=== PATIENT | female | born 1935 | race Caucasian/White ===

== ENCOUNTER 2018-05-11 14:04 | Emergency (ER) | payer MEDICARE, OTHER ==
[2018-05-11 14:17] VITALS: BMI 27.6
--- NOTE | 2018-05-11 14:25 | PDOC ---
History of Present Illness - General Chief Complaint: Weakness Stated Complaint: WEANKES - History of Present Illness Initial Comments: The patient is an 82F w/ a history of hypothyroidism, HTN, and anxiety who presents for evaluation of 3 days of insomnia, NB diarrhea, lightheadedness/ dizziness, and approximately 2d of non-exertional SOB. The patient reports a history of episodes of insomnia in the past. Reports 3d of NB diarrhea w/o N/V. Does not recall eating anything different. No others around her w/ similar symptoms. Denies fevers/chills. Endorses 2d of non-exertional SOB, that was gradual onset. Describes and needing to take more frequent breaths. Denies cough, chest pain. The patient reports living alone. Ambulates independently. Denies a period of immobility. Denies hx of SD, stroke, blood clot, or being on AC. Denies fall within last week; however, fell two weeks ago at night while walking to the bathroom. Reports feeling anxious. No identified inciting trigger per patient. Per daughter, pt's grandson broke up with gf recently and pt reportedly upset by it (occurred approximately 3-4d ago) No recent change to meds 05/11/18 14:42 Past History - Past Medical History Allergies/Adverse Reactions: Allergies Allergy/AdvReac Type Severity Reaction Status Date / Time No Known Allergies Allergy Verified 05/11/18 14:05 Home Medications: Ambulatory Orders Alprazolam [Xanax] 1 mg PO BID 05/11/18 Ascorbic Acid [Vitamin C -] 500 mg PO DAILY 05/11/18 Cephalexin Monohydrate [Keflex -] 500 mg PO BID 7 Days #14 capsule 05/11/18 Chlorthalidone [Hygroton -] 25 mg PO DAILY 05/11/18 Escitalopram Oxalate [Lexapro -] 10 mg PO DAILY 05/11/18 Levothyroxine Sodium [Levo-T] 75 mcg PO DAILY 05/11/18 Losartan Potassium [Cozaar -] 50 mg PO DAILY 05/11/18 Melatonin 5 mg PO HS 05/11/18 Mv-Mn/Iron/Folic Acid/Herb 190 [Vitamin D3 Complete Caplet] 1 each PO DAILY Potassium Chloride [K-Dur -] 10 meq PO DAILY 05/11/18 Quetiapine Fumarate "Xr" [Seroquel Xr -] 400 mg PO HS 05/11/18 COPD: No HTN: Yes Psychiatric Problems: Yes (depression) Thyroid Disease: Yes - Suicide/Smoking/Psychosocial Hx Smoking History: Never smoked Review of Systems - Review of Systems Able to Perform ROS?: Yes Comments:: GENERAL/CONSTITUTIONAL: No fever or chills. No weakness._ HEAD, EYES, EARS, NOSE AND THROAT: No change in vision. No ear pain or discharge. No sore throat._ CARDIOVASCULAR: No chest pain or shortness of breath_ RESPIRATORY: No cough, wheezing, or hemoptysis._ GASTROINTESTINAL: No nausea, vomiting, diarrhea or constipation._ GENITOURINARY: No dysuria, frequency, or change in urination._ MUSCULOSKELETAL: No joint or muscle swelling or pain. No neck or back pain._ SKIN: No rash_ NEUROLOGIC: No headache, vertigo, loss of consciousness, or change in strength/ sensation._ ENDOCRINE: No increased thirst. No abnormal weight change_ HEMATOLOGIC/LYMPHATIC: No anemia, easy bleeding, or history of blood clots._ ALLERGIC/IMMUNOLOGIC: No hives or skin allergy._ 05/11/18 14:59 *Physical Exam - Vital Signs Last Vital Signs Temp Pulse Resp BP Pulse Ox 98.5 F 85 20 137/45 L 98 05/11/18 14:12 05/11/18 14:12 05/11/18 14:12 05/11/18 14:12 05/11/18 14:12 - Physical Exam Comments: GENERAL: Awake, alert, in no acute distress HEAD: No signs of trauma, normocephalic, atraumatic EYES: PERRLA, EOMI, sclera anicteric, conjunctiva clear ENT: Hearing grossly normal, nares patent, oropharynx clear without exudates. Moist mucosa LUNGS: No distress, clear to auscultation bilaterally HEART: Regular rate and rhythm, normal S1 and S2, no murmurs appreciated, peripheral pulses normal and equal bilaterally ABDOMEN: Soft, nontender, normoactive bowel sounds. No guarding, no rebound EXTREMITIES : Normal inspection, Normal range of motion, no edema. No clubbing or cyanosis NEUROLOGICAL: Cranial nerves II through XII grossly intact. Normal speech, no focal sensorimotor deficits SKIN: Warm, Dry, normal turgor, no rashes or lesions noted 05/11/18 14:59 ED Treatment Course - LABORATORY CBC & Chemistry Diagram: 05/11/18 15:05 05/11/18 15:05 Medical Decision Making - Medical Decision Making The patient is an 82F w/ a history of hypothyroidism, HTN, anxiety who presents for evaluation of 3d of insomnia, lightheadedness, non-exertional dyspnea, and NB diarrhea ED Course CMP, CBC, cardiac profile, T/S, UA, UCx ECG CXR, CT Head w/o 05/11/18 15:01 Trop I neg No leukocytosis BNP wnl No IRIS Lytes wnl CXR w/o evidence of PNA/PNX Pending CT head 05/11/18 17:05 D-dimer 795, will obtain CTA chest to r/o PE 05/11/18 17:17 UA w/ evidence of UTI -Rocephin 1g IV once -Will Rx Keflex 5d CTA pending 05/11/18 17:55 CT Head w/o evidence of bleed, edema, mass effect, or herniation 05/11/18 18:14 CTA pending 05/11/18 19:25 CTA read pending 05/11/18 20:23 CTA w/o evidence of PE or AD; Small pleural effusion; No pnx; no sig pericardial effusion Plan for D/C w/ PCP and regular psych f/u Discharge instructions and return precautions given Rx sent to patient's pharmacy Dispo: Home 05/11/18 21:27 *DC/Admit/Observation/Transfer Diagnosis at time of Disposition: Insomnia Qualifiers: Insomnia type: unspecified Qualified Code(s): G47.00 - Insomnia, unspecified Headache Qualifiers: Headache type: unspecified Headache chronicity pattern: acute headache Intractability: not intractable Qualified Code(s): R51 - Headache - Discharge Dispostion Disposition: HOME Condition at time of disposition: Stable Decision to Admit order: No - Prescriptions Prescriptions: Cephalexin Monohydrate [Keflex -] 500 mg PO BID 7 Days #14 capsule - Referrals Referrals: Lori Calderon MD [Primary Care Provider] - - Patient Instructions Printed Discharge Instructions: DI for Headache, DI for Insomnia Additional Instructions: You were seen in the Emergency Department today for evaluation for insomnia and dizziness. You were evaluated and found to not have evidence of infection, head bleed, blood clot, or electrolyte abnormality. Please review then handouts provided at discharge. Please follow up with your primary care provider within the next 1-3 days. Return to the Emergency Department if you develop fevers/chills, shortness of breath, chest pain, nausea/vomiting, worsening symptoms, or any new/concerning symptoms. - Post Discharge Activity
[2018-05-11] MEDS ORDERED: SODIUM CHLORIDE 0.9% 500 ML INFUS.BAG IV ONE (15:25)
[2018-05-11 15:47] LABS: ALBUMIN 3.8 g/dl (3.4-5.0); ALK PHOS 85 U/L (45-117); ANION GAP 7 MMOL/L (8-16); BILIRUBIN,TOTAL 0.4 mg/dL (0.2-1); BLOOD UREA NITROGEN 20 mg/dL (7-18); CALCIUM 8.5 mg/dL (8.5-10.1); CHLORIDE 97 mmol/L (98-107); CO2 27 mmol/L (21-32); GLUCOSE,RANDOM 86 mg/dL (74-106); SGOT/AST 30 U/L (15-37); SGPT/ALT 24 U/L (13-61); SODIUM 131 mmol/L (136-145); TOT PROT 7.2 g/dl (6.4-8.2)
[2018-05-11 15:55] LABS: URINE APPEARANCE CLEAR; URINE BILIRUBIN NEGATIVE (<2.0 mg/dL); URINE COLOR STRAW; URINE GLUCOSE (UA) NEGATIVE (NEGATIVE); URINE KETONE NEGATIVE (NEGATIVE); URINE LEUK ESTERASE 1+ (NEGATIVE); URINE NITRITE NEGATIVE (NEGATIVE); URINE PROTEIN NEGATIVE (NEGATIVE); URINE UROBILINOGEN NEGATIVE mg/dL (0.2-1.0)
[2018-05-11 16:08] LABS: HEMATOCRIT 32.5 % (32.4-45.2); INR 0.98 (0.83-1.09); MCH 31.7 pg (25.7-33.7); MCHC 33.8 g/dl (32.0-36.0); MEAN CELL VOLUME 93.7 fl (80-96); MEAN PLT VOLUME 7.9 fl (7.5-11.1); PLATELET COUNT 143 K/MM3 (134-434); PROTHROMBIN TIME (PATIENT) 11.6 SEC (9.7-13.0); RBC 3.47 M/mm3 (3.60-5.2); RDW 12.3 % (11.6-15.6); WHITE BLOOD COUNT 6.8 K/mm3 (4.0-10.0)
[2018-05-11 16:11] LABS: ACTIVATED PTT 41.5 SECONDS (25.2-36.5)
--- NOTE | 2018-05-11 16:22 | PDOC ---
Attending Attestation - Resident Resident Name: Giovany Villalobos - ED Attending Attestation I have performed the following: I have examined & evaluated the patient, The case was reviewed & discussed with the resident, I agree w/resident's findings & plan, Exceptions are as noted - HPI HPI: 05/11/18 16:22 The patient is a 82 year old female, with a significant PMH of hypothyroidism, hypertension, anxiety and episodic insomnia, who presents to the emergency department with 3 days of insomnia and headache. The patient is a poor hisorian and gives varying histories to different providers, previously reported intermittent lightheadedness, diarrhea and SOB. At this time, she complains of a headache over the crown of her head for 3 days of gradual onset and insomnia. She denies all other symptoms. She has not tried any treatments The patient denies any recent chest pain, SOB, dizziness, palpitations or syncope. Denies fever, chills, abdominal pain, nausea, vomit and constipation. Denies dysuria, frequency, urgency and hematuria. Allergies: NKA PCP: Dr Calderon - Physicial Exam PE: 05/11/18 16:25 GENERAL: Awake, alert, and fully oriented, in no acute distress HEAD: No signs of trauma EYES: PERRLA, EOMI, sclera anicteric, conjunctiva clear ENT: Hard of hearing, nares patent, oropharynx clear without exudates. Moist mucosa NECK: Normal ROM, supple, no lymphadenopathy, JVD, or masses LUNGS: Breath sounds equal, clear to auscultation bilaterally. No wheezes, and no crackles HEART: Regular rate and rhythm, normal S1 and S2, no murmurs, rubs or gallops ABDOMEN: Soft, nontender, normoactive bowel sounds. No guarding, no rebound. No masses EXTREMITIES: Normal range of motion, no edema. No clubbing or cyanosis. No cords, erythema, or tenderness NEUROLOGICAL: Normal speech, cranial nerves intact, 5/5 strength in all 4 extremities, normal sensation to light touch in all 4 extremities, normal cerebellar exam, normal gait, normal reflexes and tone SKIN: Warm, Dry, normal turgor, no rashes or lesions noted. - Medical Decision Making 05/11/18 16:28 82yo F hx hypothyroidism, hypertension, anxiety and episodic insomnia presents to the ED with various complaints including insomnia and headache, but also c/o intermittent SOB, diarrhea, and lightheadedness to other providers. Vitals wnl. Pt well appearing, and neurologically intact. EKG is non ischemic. Headache is gradual onset with no red flags. Given limited history, will work pt off for ACS vs PE vs metabolic d/o vs infection vs neurologic abnormality. Plan: -labs including trop x2 -UA -CXR -CTH -treat headache -reassess 05/11/18 17:00 Labs including trop wnl UA with 8 WBCs and moderate bacteria, will treat UTI dimer pending CTH pending Signed out to evening attending for f/u on diagnostics and dispo Heart Score/ECG Review #1 05/11/18 16:31 Twelve-lead EKG was performed and reviewed by me. Normal sinus rhythm, rate 68. Normal axis and intervals. No ST elevations.
[2018-05-11 16:28] LABS: EPI CELLS RARE /HPF (FEW); URINE BACTERIA MODERATE /hpf (NONE SEEN)
[2018-05-11] MEDS ORDERED: ACETAMINOPHEN 1000 MG/100 ML VIAL (NON FORMULARY) IVPB ONE (16:56)
[2018-05-11] MEDS ORDERED: CEFTRIAXONE 1,000 MG in DEXTROSE 5%-WATER - 50 ML IVPB ONE (17:54)
[2018-05-11] MEDS ORDERED: CEFTRIAXONE 1 GM/50 ML BAG ONE (18:07)
[2018-05-11 19:17] VITALS: BP 160/74; PULSE 64; TEMP 97.8
--- NOTE | 2018-05-12 10:58 | EKG ---
Test Reason : Blood Pressure : / mmHG Vent. Rate : 068 BPM Atrial Rate : 068 BPM P-R Int : 132 ms QRS Dur : 092 ms QT Int : 376 ms P-R-T Axes : 004 026 040 degrees QTc Int : 399 ms NORMAL SINUS RHYTHM NORMAL ECG NO PREVIOUS ECGS AVAILABLE Confirmed by HUMAIRA MARIN MD ([id number]) on 05/12/2018 10:57:26 AM Referred By: Confirmed By:HUMAIRA MARIN MD
== END 2018-05-11 21:10 | disposition home or self-care (01) ==
LOC: JER 14:04
PROC: 3E03329 Introduction of Other Anti-infective into Peripheral Vein, Percutaneous Approach (ICD-10-PCS; principal; 2018-05-11)
PROC: 3E033NZ Introduction of Analgesics, Hypnotics, Sedatives into Peripheral Vein, Percutaneous Approach (ICD-10-PCS; 2018-05-11)
DX: N39.0 Urinary tract infection, site not specified (principal); G47.00 Insomnia, unspecified; R51 Headache; I10 Essential (primary) hypertension; E03.9 Hypothyroidism, unspecified; F41.9 Anxiety disorder, unspecified
CPT/HCPCS: 36415; 70450-TC; 71045-TC-FY; 71275-TC; 80053; 81003; 81015; 82550; 83880; 84484; 85027; 85379; 85610; 85730; 86850; 86900; 86901; 93005; 93010; 96365; 96375; 99284-25; J0131

== ENCOUNTER 2018-07-15 10:57 | Observation (INO) | payer MEDICARE, OTHER ==
[2018-07-15] MEDS ORDERED: ACETAMINOPHEN 1000 MG/100 ML VIAL (NON FORMULARY) IVPB ONE (12:37)
[2018-07-15] MEDS ORDERED: SODIUM CHLORIDE 1,000 ML IV STA (12:37)
[2018-07-15] MEDS ORDERED: ONDANSETRON 4 MG/2 ML VIAL IVPUSH ONE (12:37)
[2018-07-15] MEDS ORDERED: ONDANSETRON 4 MG/2 ML VIAL ONE (12:51)
[2018-07-15] MEDS ORDERED: ACETAMINOPHEN INJECTION 100 ML IVPB ONE (12:51)
--- NOTE | 2018-07-15 12:59 | PDOC ---
History of Present Illness - General History Source: Patient, Family Exam Limitations: Language Barrier - History of Present Illness Initial Comments: 07/15/18 13:02 Bail Attacher# [id number] (French) The patient is a 82 year old female, with a significant past medical history of anxiety, hypertension, and hypothyroid, who presents to the emergency department with headache, dizziness, shortness of breath, nausea and vomiting with associated epigastric pain for about a week. She states her headache is diffuse and accompanied with intermittent dizziness. She reports about 2-3 episodes of white, not yellow or bloody emesis daily. She reports localized, intermittent, epigastric pain, 3/10 in severity, associated with her emesis and also reports a loss of appetite since the onset of her symptoms. She also reports intermittent SOB. She is currently taking Abx for a UTI. She denies sick contacts. The patient denies chest pain. The patient denies fever, chills, nausea, vomit, diarrhea and constipation. The patient denies dysuria, frequency, urgency and hematuria. Allergies: NKDA <Valentine Drew - Last Filed: 07/15/18 13:02> <Karie Limon - Last Filed: 07/15/18 15:46> - General Chief Complaint: Cold Symptoms Stated Complaint: COLD SYMPTOMS Time Seen by Provider: 07/15/18 11:32 Past History <Valentine Drew - Last Filed: 07/15/18 13:02> - Past Medical History COPD: No HTN: Yes Psychiatric Problems: Yes (depression) Thyroid Disease: Yes - Immunization History Immunization Up to Date: Yes - Suicide/Smoking/Psychosocial Hx Smoking History: Never smoked Information on smoking cessation initiated: No Hx Alcohol Use: No Drug/Substance Use Hx: No <Karie Limon - Last Filed: 07/15/18 15:46> - Past Medical History Allergies/Adverse Reactions: Allergies Allergy/AdvReac Type Severity Reaction Status Date / Time No Known Allergies Allergy Verified 07/15/18 11:02 Home Medications: Ambulatory Orders Levothyroxine Sodium [Levo-T] 50 mcg PO DAILY 05/11/18 Cholecalciferol (Vitamin D3) [Vitamin D3] 2,000 unit PO DAILY 07/15/18 Escitalopram Oxalate [Lexapro -] 10 mg PO DAILY 07/15/18 Melatonin [Melatin] 3 mg PO HS PRN 07/15/18 Quetiapine Fumarate "Xr" [Seroquel Xr -] 400 mg PO HS 07/15/18 Review of Systems - Review of Systems Able to Perform ROS?: Yes Comments:: 07/15/18 13:03 GENERAL/CONSTITUTIONAL: (+) appetite loss. No fever or chills. No weakness. HEAD, EYES, EARS, NOSE AND THROAT: No change in vision. No ear pain or discharge. No sore throat. CARDIOVASCULAR: No chest pain RESPIRATORY: (+) shortness of breath. No cough, wheezing, or hemoptysis. GASTROINTESTINAL: (+) nausea, vomiting, epigastric pain. No diarrhea or constipation. GENITOURINARY: No dysuria, frequency, or change in urination. MUSCULOSKELETAL: No joint or muscle swelling or pain. No neck or back pain. SKIN: No rash NEUROLOGIC: (+) headache, vertigo, No loss of consciousness, or change in strength/sensation. ENDOCRINE: No increased thirst. No abnormal weight change. HEMATOLOGIC/LYMPHATIC: No anemia, easy bleeding, or history of blood clots. ALLERGIC/IMMUNOLOGIC: No hives or skin allergy. <Valentine Drew - Last Filed: 07/15/18 13:02> *Physical Exam - Vital Signs Last Vital Signs Temp Pulse Resp BP Pulse Ox 98.2 F 74 17 151/72 96 07/15/18 11:03 07/15/18 11:03 07/15/18 11:03 07/15/18 11:03 07/15/18 11:03 <Valentine Drew - Last Filed: 07/15/18 13:02> - Vital Signs Last Vital Signs Temp Pulse Resp BP Pulse Ox 98.2 F 74 17 151/72 96 07/15/18 11:03 07/15/18 11:03 07/15/18 11:03 07/15/18 11:03 07/15/18 11:03 - Physical Exam Comments: GENERAL: Awake, alert, and fully oriented, in no acute distress. Appears ill, but nontoxic. Uncomfortable. HEAD: No signs of trauma EYES: PERRLA, EOMI, sclera anicteric, conjunctiva clear ENT: Auricles normal inspection, hearing grossly normal, nares patent, oropharynx clear without exudates. Dry mucosa NECK: Normal ROM, supple, no lymphadenopathy, JVD, or masses LUNGS: Breath sounds equal, clear to auscultation bilaterally. No wheezes, and no crackles HEART: Regular rate and rhythm, normal S1 and S2, no murmurs, rubs or gallops ABDOMEN: Soft, diffuse tenderness, hyperactive bowel sounds. No guarding, no rebound. No masses EXTREMITIES: Normal range of motion, no edema. No clubbing or cyanosis. No cords, erythema, or tenderness NEUROLOGICAL: Cranial nerves II through XII grossly intact. Normal speech, normal gait. Motor and sensation intact SKIN: Warm, Dry, normal turgor, no rashes or lesions noted. <Karie Limon - Last Filed: 07/15/18 15:46> Moderate Sedation - Procedure Monitoring Vital Signs: Procedure Monitoring Vital Signs Temperature 98.2 F 07/15/18 11:03 Pulse Rate 74 07/15/18 11:03 Respiratory Rate 17 07/15/18 11:03 Blood Pressure 151/72 07/15/18 11:03 O2 Sat by Pulse Oximetry (%) 96 07/15/18 11:03 <Valentine Drew - Last Filed: 07/15/18 13:02> - Procedure Monitoring Vital Signs: Procedure Monitoring Vital Signs Temperature 98.2 F 07/15/18 11:03 Pulse Rate 74 07/15/18 11:03 Respiratory Rate 17 07/15/18 11:03 Blood Pressure 151/72 07/15/18 11:03 O2 Sat by Pulse Oximetry (%) 96 07/15/18 11:03 <Karie Limon - Last Filed: 07/15/18 15:46> Heart Score/ECG Review - ECG Impressions Comment:: EKG read 12:14- NSR 72 bpm, no acute ST/T changes. <Karie Limon - Last Filed: 07/15/18 15:46> ED Treatment Course - LABORATORY CBC & Chemistry Diagram: 07/15/18 12:48 07/15/18 12:45 - Medications Given in the ED: ED Medications Discontinued Medications Generic Name Dose Route Start Last Admin Trade Name Freq PRN Reason Stop Dose Admin Acetaminophen 1,000 mg 07/15/18 12:37 07/15/18 12:56 Ofirmev Injection - IVPB 07/15/18 12:38 1,000 mg ONCE ONE Administration Ondansetron HCl 4 mg 07/15/18 12:37 07/15/18 12:56 Zofran Injection IVPUSH 07/15/18 12:38 4 mg ONCE ONE Administration <Valentine Drew - Last Filed: 07/15/18 13:02> - LABORATORY CBC & Chemistry Diagram: 07/15/18 12:48 07/15/18 12:45 - Medications Given in the ED: ED Medications Discontinued Medications Generic Name Dose Route Start Last Admin Trade Name Emilie PRN Reason Stop Dose Admin Acetaminophen 1,000 mg 07/15/18 12:37 07/15/18 12:56 Ofirmev Injection - IVPB 07/15/18 12:38 1,000 mg ONCE ONE Administration Ondansetron HCl 4 mg 07/15/18 12:37 07/15/18 12:56 Zofran Injection IVPUSH 07/15/18 12:38 4 mg ONCE ONE Administration <Karie Limon - Last Filed: 07/15/18 15:46> Medical Decision Making - Medical Decision Making 07/15/18 12:59 Based on age and duration of symptoms, will obtain labs, as well as CT a/p. 07/15/18 15:27 CT reviewed, no significant findings to explain her symptoms. Will admit for vomiting, with hyponatremia and hypochloremia. She has history of prior hyponatremia ~131, now at 127. In light of the hypochloremia, likely due to GI losses. D/w Dr. Indigo Mendoza, accepted to hospitalist service. <Karie Limon - Last Filed: 07/15/18 15:46> *DC/Admit/Observation/Transfer - Attestations Scribe Attestion: 07/15/18 13:03 Documentation prepared by Valentine Drew, acting as medical lab specialist for Karie Limon MD <Valentine Drew - Last Filed: 07/15/18 13:02> - Discharge Dispostion Decision to Admit order: Yes <Karie Limon - Last Filed: 07/15/18 15:46> Diagnosis at time of Disposition: Hyponatremia Vomiting Qualifiers: Vomiting type: unspecified Vomiting Intractability: non-intractable Nausea presence: with nausea Qualified Code(s): R11.2 - Nausea with vomiting, unspecified - Discharge Dispostion Condition at time of disposition: Stable - Referrals Referrals: Lori Calderon MD [Primary Care Provider] - - Patient Instructions - Post Discharge Activity
[2018-07-15 13:09] LABS: BASO % 0.4 % (0-2.0); EOS % 0.3 % (0-4.5); HEMATOCRIT 31.7 % (32.4-45.2); HEMOGLOBIN 11.6 GM/dL (10.7-15.3); MCH 33.5 pg (25.7-33.7); MCHC 36.6 g/dl (32.0-36.0); MEAN CELL VOLUME 91.4 fl (80-96); MONO % 5.4 % (3.8-10.2); NEUT % 84.9 % (42.8-82.8); PLATELET COUNT 239 K/MM3 (134-434); RBC 3.47 M/mm3 (3.60-5.2); WHITE BLOOD COUNT 7.2 K/mm3 (4.0-10.0)
[2018-07-15 13:36] LABS: ALBUMIN 4.3 g/dl (3.4-5.0); ALK PHOS 100 U/L (45-117); ANION GAP 11 MMOL/L (8-16); BILIRUBIN,TOTAL 0.4 mg/dL (0.2-1); BLOOD UREA NITROGEN 18 mg/dL (7-18); CALCIUM 9.1 mg/dL (8.5-10.1); CHLORIDE 92 mmol/L (98-107); CO2 24 mmol/L (21-32); CREATININE 0.8 mg/dL (0.55-1.3); GLUCOSE,RANDOM 126 mg/dL (74-106); LIPASE 141 U/L (73-393); POTASSIUM 3.5 mmol/L (3.5-5.1); SGOT/AST 34 U/L (15-37); SGPT/ALT 28 U/L (13-61); SODIUM 127 mmol/L (136-145)
[2018-07-15 14:51] LABS: URINE APPEARANCE CLEAR; URINE BILIRUBIN NEGATIVE (<2.0 mg/dL); URINE COLOR LTYELLOW; URINE GLUCOSE (UA) NEGATIVE (NEGATIVE); URINE KETONE NEGATIVE (NEGATIVE); URINE LEUK ESTERASE TRACE (NEGATIVE); URINE NITRITE NEGATIVE (NEGATIVE); URINE PROTEIN NEGATIVE (NEGATIVE); URINE UROBILINOGEN NEGATIVE mg/dL (0.2-1.0)
[2018-07-15 14:57] LABS: EPI CELLS RARE /HPF (FEW)
--- NOTE | 2018-07-15 15:50 | EKG ---
Test Reason : Blood Pressure : / mmHG Vent. Rate : 072 BPM Atrial Rate : 072 BPM P-R Int : 158 ms QRS Dur : 104 ms QT Int : 416 ms P-R-T Axes : 060 034 025 degrees QTc Int : 455 ms POOR DATA QUALITY, INTERPRETATION MAY BE ADVERSELY AFFECTED NORMAL SINUS RHYTHM NORMAL ECG WHEN COMPARED WITH ECG OF 11-MAY-2018 15:07, QT HAS LENGTHENED Confirmed by Shahid Sorto ([id number]) on 07/15/2018 3:50:04 PM Referred By: Confirmed By:Shahid Sorto
--- NOTE | 2018-07-15 16:07 | HP ---
CHIEF COMPLAINT: abdominal pain HISTORY OF PRESENT ILLNESS: Patient is a 82 yo, Yi speaking F, with a PMHx of hypothyroidism, anxiety, HTN, who presented with 3/10, burning, epigastric, abdominal pain for 2 days. She does not remember what she ate during that time. She said she started developing diffuse headaches yesterday after 2 episodes of NBNB vomiting. Patient did not vomit today. She said the headaches come and go. She also states she has been dizzy over the last 2 days. Her last BM was 2 days ago. Patient has no recent travel. She was being treated with Ciprofloxacin for a UTI by her PCP. Today was her last dose. Denies sick contacts, diarrhea, weight loss, LOC, SOB, chills, fevers, bloody stools, urinary symptoms. ER course was notable for: (1) 127 sodium, 92 Chloride (2) 1L NS bolus (3) Abd CTAP unremarkable Recent Travel: denies PAST MEDICAL HISTORY: per HPI PAST SURGICAL HISTORY: denies Social History: Smoking: denies Alcohol: denies Drugs: denies Family History: Allergies No Known Allergies Allergy (Verified 07/15/18 11:02) HOME MEDICATIONS: Home Medications Medication Instructions Recorded Levothyroxine Sodium [Levo-T] 50 mcg PO DAILY 05/11/18 Cholecalciferol (Vitamin D3) 2,000 unit PO DAILY 07/15/18 [Vitamin D3] Escitalopram Oxalate [Lexapro -] 10 mg PO DAILY 07/15/18 Melatonin [Melatin] 3 mg PO HS PRN 07/15/18 Quetiapine Fumarate "Xr" [Seroquel 400 mg PO HS 07/15/18 Xr -] REVIEW OF SYSTEMS CONSTITUTIONAL: weakness, loss of appetite Absent: fever, chills, diaphoresis, malaise, weight change HEENT: Absent: rhinorrhea, nasal congestion, throat pain, throat swelling, difficulty swallowing, mouth swelling, ear pain, eye pain, visual changes CARDIOVASCULAR: Absent: chest pain, syncope, palpitations, irregular heart rate, lightheadedness , peripheral edema RESPIRATORY: Absent: cough, shortness of breath, dyspnea with exertion, orthopnea, wheezing, stridor, hemoptysis GASTROINTESTINAL: abd pain, nausea, vomiting Absent: abdominal distension, diarrhea, constipation, melena, hematochezia GENITOURINARY: Absent: dysuria, frequency, urgency, hesitancy, hematuria, flank pain, genital pain MUSCULOSKELETAL: Absent: myalgia, arthralgia, joint swelling, back pain, neck pain SKIN: Absent: rash, itching, pallor HEMATOLOGIC/IMMUNOLOGIC: Absent: easy bleeding, easy bruising, lymphadenopathy, frequent infections ENDOCRINE: Absent: unexplained weight gain, unexplained weight loss, heat intolerance, cold intolerance NEUROLOGIC: Absent: headache, focal weakness or paresthesias, dizziness, unsteady gait, seizure, mental status changes, bladder or bowel incontinence PSYCHIATRIC: Absent: anxiety, depression, suicidal or homicidal ideation, hallucinations. PHYSICAL EXAMINATION Vital Signs - 24 hr 07/15/18 11:03 Temperature 98.2 F Pulse Rate 74 Respiratory 17 Rate Blood Pressure 151/72 O2 Sat by Pulse 96 Oximetry (%) GENERAL: Awake, alert, and fully oriented, in no acute distress. HEAD: Normal with no signs of trauma. EYES: Pupils equal, round and reactive to light, extraocular movements intact, sclera anicteric, conjunctiva clear. EARS, NOSE, THROAT: oropharynx clear without exudates. dry mucous membranes NECK: supple without lymphadenopathy, JVD, or masses. LUNGS: Breath sounds equal, clear to auscultation bilaterally. No wheezes, and no crackles. HEART: RRR, no murmurs appreciated, S1 S2 ABDOMEN: Soft, mild epigastric TTP not distended, normoactive bowel sounds, no guarding, no rebound, no masses. UPPER EXTREMITIES: 2+ pulses, No peripheral edema. LOWER EXTREMITIES: 2+ pulses, warm, well-perfused. No peripheral edema. NEUROLOGICAL: Cranial nerves II-XII intact. Normal speech. PSYCHIATRIC: Cooperative. Good eye contact. SKIN: normal turgor, normal capillary refill. Laboratory Results - last 24 hr 07/15/18 07/15/18 07/15/18 12:45 12:48 14:10 WBC 7.2 RBC 3.47 L Hgb 11.6 Hct 31.7 L MCV 91.4 MCH 33.5 MCHC 36.6 H RDW 12.0 Plt Count 239 D MPV 7.0 L D Absolute Neuts (auto) 6.1 Neutrophils % 84.9 H Lymphocytes % 9.0 Monocytes % 5.4 Eosinophils % 0.3 Basophils % 0.4 Nucleated RBC % 0 Sodium 127 L Potassium 3.5 Chloride 92 L Carbon Dioxide 24 Anion Gap 11 BUN 18 Creatinine 0.8 Creat Clearance w eGFR > 60 Random Glucose 126 H Calcium 9.1 Total Bilirubin 0.4 AST 34 ALT 28 Alkaline Phosphatase 100 Troponin I < 0.02 Total Protein 8.0 Albumin 4.3 Lipase 141 Urine Color Ltyellow Urine Appearance Clear Urine pH 6.0 Ur Specific [place] 1.011 Urine Protein Negative Urine Glucose (UA) Negative Urine Ketones Negative Urine Blood Negative Urine Nitrite Negative Urine Bilirubin Negative Urine Urobilinogen Negative Ur Leukocyte Esterase Trace Urine WBC (Auto) 3 Urine RBC (Auto) 4 Ur Epithelial Cells Rare Ur Random Sodium Urine Creatinine 07/15/18 14:10 WBC RBC Hgb Hct MCV MCH MCHC RDW Plt Count MPV Absolute Neuts (auto) Neutrophils % Lymphocytes % Monocytes % Eosinophils % Basophils % Nucleated RBC % Sodium Potassium Chloride Carbon Dioxide Anion Gap BUN Creatinine Creat Clearance w eGFR Random Glucose Calcium Total Bilirubin AST ALT Alkaline Phosphatase Troponin I Total Protein Albumin Lipase Urine Color Urine Appearance Urine pH Ur Specific [place] Urine Protein 11 Urine Glucose (UA) Urine Ketones Urine Blood Urine Nitrite Urine Bilirubin Urine Urobilinogen Ur Leukocyte Esterase Urine WBC (Auto) Urine RBC (Auto) Ur Epithelial Cells Ur Random Sodium 61 Urine Creatinine 49.0 ASSESSMENT/PLAN: 82 yo, Yi speaking F, with a PMHx of hypothyroidism, anxiety, HTN, who presented with abdominal pain, nausea, and vomiting for 2 days. #Abdominal Pain likely 2/2 to Viral Gastroenteritis vs Adverse effect of Antibiotic -DC cipro, Last dose of Ciprofloxacin today (started on 07/08). -1 L Bolus NS in ED -Cont. IV fluids NS 75ml/hour -Abd CTAP unremarkable -monitor #Hyponatremia -likely from dehydration -IV fluids -could be chronic (131 on last admission) -serum/urine osms -monitor lytes #Headache/Dizziness -likely from dehydration -FU Head CT -IV fluids -tylenol as needed #Hypothyroidism -Tsh level -cont home med #hx of Anxiety -cont. Home meds #FEN -Iv fluids NS @ 75 -monitor sodium -Regular diet #Dvt -SCDs Dispo: Obs Visit type - Emergency Visit Emergency Visit: Yes ED Registration Date: 07/15/18 Care time: The patient presented to the Emergency Department on the above date and was hospitalized for further evaluation of their emergent condition. - New Patient This patient is new to me today: Yes Date on this admission: 07/18/18 - Critical Care Critical Care patient: No
[2018-07-15] MEDS ORDERED: ACETAMINOPHEN 325 MG TABLET (FP) PO PRN (16:29)
[2018-07-15] MEDS ORDERED: ONDANSETRON 4 MG/2 ML VIAL IVPUSH PRN (16:32)
[2018-07-15] MEDS: SODIUM CHLORIDE 1,000 ML IV SCH ×2 (16:37→19:40)
[2018-07-15 19:36] VITALS: BMI 29.4
--- NOTE | 2018-07-15 19:59 | PN ---
Teaching Attending Note Name of Resident: Henry Mendoza ATTENDING PHYSICIAN STATEMENT I saw and evaluated the patient. I reviewed the resident's note and discussed the case with the resident. I agree with the resident's findings and plan as documented. SUBJECTIVE: Still complains of abdominal pain, nausea, vomiting clear liquid. OBJECTIVE: Afebrile, Hemodynamically Stable. Last Vital Signs Temp Pulse Resp BP Pulse Ox 97.3 F L 70 20 151/77 98 07/15/18 19:06 07/15/18 19:06 07/15/18 19:06 07/15/18 19:06 07/15/18 19:06 HEENT - Atraumatic, Normocephalic Heart - S1, S2, RRR Lungs - clear to auscultation Abdomen - soft, generalized tenderness. No guarding or rebound. Bowel Sounds normal. Extremities - no edema. No calf tenderness Laboratory Results - last 24 hr 07/15/18 07/15/18 07/15/18 12:45 12:48 14:10 WBC 7.2 RBC 3.47 L Hgb 11.6 Hct 31.7 L MCV 91.4 MCH 33.5 MCHC 36.6 H RDW 12.0 Plt Count 239 D MPV 7.0 L D Absolute Neuts (auto) 6.1 Neutrophils % 84.9 H Lymphocytes % 9.0 Monocytes % 5.4 Eosinophils % 0.3 Basophils % 0.4 Nucleated RBC % 0 Sodium 127 L Potassium 3.5 Chloride 92 L Carbon Dioxide 24 Anion Gap 11 BUN 18 Creatinine 0.8 Creat Clearance w eGFR > 60 Random Glucose 126 H Calcium 9.1 Total Bilirubin 0.4 AST 34 ALT 28 Alkaline Phosphatase 100 Troponin I < 0.02 Total Protein 8.0 Albumin 4.3 Lipase 141 Urine Color Ltyellow Urine Appearance Clear Urine pH 6.0 Ur Specific [place] 1.011 Urine Protein Negative Urine Glucose (UA) Negative Urine Ketones Negative Urine Blood Negative Urine Nitrite Negative Urine Bilirubin Negative Urine Urobilinogen Negative Ur Leukocyte Esterase Trace Urine WBC (Auto) 3 Urine RBC (Auto) 4 Ur Epithelial Cells Rare Ur Random Sodium Urine Creatinine 07/15/18 14:10 WBC RBC Hgb Hct MCV MCH MCHC RDW Plt Count MPV Absolute Neuts (auto) Neutrophils % Lymphocytes % Monocytes % Eosinophils % Basophils % Nucleated RBC % Sodium Potassium Chloride Carbon Dioxide Anion Gap BUN Creatinine Creat Clearance w eGFR Random Glucose Calcium Total Bilirubin AST ALT Alkaline Phosphatase Troponin I Total Protein Albumin Lipase Urine Color Urine Appearance Urine pH Ur Specific [place] Urine Protein 11 Urine Glucose (UA) Urine Ketones Urine Blood Urine Nitrite Urine Bilirubin Urine Urobilinogen Ur Leukocyte Esterase Urine WBC (Auto) Urine RBC (Auto) Ur Epithelial Cells Ur Random Sodium 61 Urine Creatinine 49.0 Current Medications Generic Name Dose Route Start Last Admin Trade Name Freq PRN Reason Stop Dose Admin Acetaminophen 650 mg 07/15/18 16:29 Tylenol - PO Q4H PRN HEADACHE Cholecalciferol 2,000 unit 07/16/18 10:00 Vitamin D3 - PO DAILY [facility] Escitalopram Oxalate 10 mg 07/16/18 10:00 Lexapro - PO DAILY JOSE GUADALUPE Sodium Chloride 1,000 mls @ 75 mls/hr 07/15/18 16:15 07/15/18 16:37 Normal Saline - IV 75 mls/hr ASDIR JOSE GUADALUPE Administration Levothyroxine Sodium 50 mcg 07/16/18 07:00 Synthroid - PO AM JOSE GUADALUPE Melatonin 3 mg 07/15/18 16:32 Melatonin PO HS PRN INSOMNIA Ondansetron HCl 4 mg 07/15/18 16:32 Zofran Injection IVPUSH Q6H PRN NAUSEA AND/OR VOMITING Quetiapine Fumarate 400 mg 07/15/18 22:00 Seroquel Xr - PO HS [facility] Home Medications Medication Instructions Recorded Levothyroxine Sodium [Levo-T] 50 mcg PO DAILY 05/11/18 Cholecalciferol (Vitamin D3) 2,000 unit PO DAILY 07/15/18 [Vitamin D3] Escitalopram Oxalate [Lexapro -] 10 mg PO DAILY 07/15/18 Melatonin [Melatin] 3 mg PO HS PRN 07/15/18 Quetiapine Fumarate "Xr" [Seroquel 400 mg PO HS 07/15/18 Xr -] ASSESSMENT/PLAN: 82 year old female with history of Hypothyroidism, Anxiety, HTN, who presented with abdominal pain, nausea, and vomiting for 2 days (non-bloody), with subsequent headache, without fever/chills or other neurological symptoms. 1. Abdominal Pain/Nausea/Vomiting sec to adverse effect of Abx Cipro versus Gastritis vs Viral gastroenteritis. Lipase 141 CT A/P - possible gastric thickening, no acute pathology Day 7 Cipro today - discontinue Received 1L bolus in ED - continue hydration gently. NPO, IV Morphine Sulfate, Zofran prn GI Consult IV PPI 2. Hyponatremia, possibly sec to dehydration, possibly Chronic (Na 131 on last admission) Will monitor Na in response to IV hydration with NS. Serum/Urine Osmo requested. 3. Headache and Lightheadedness likely secondary to dehydration CT Head - no acute findings. Continue IV hydration and monitor response. Tylenol prn. 4. Hypothyroidism TSH requested. Continue Levothyroxine 5. History of Anxiety - continue Lexapro, Seroquel DVT Px - Heparin SQ Dispo - PT eval. GI Px - PPI
[2018-07-15] MEDS ORDERED: METOCLOPRAMIDE HCL INJECTION 10 MG/2 ML VIAL IVPUSH ONE (20:22)
[2018-07-15 20:26] LABS: OSMOLALITY,SERUM 265 mosm/kg (278-305)
[2018-07-15] MEDS: MORPHINE SULFATE 2 MG/ML VIAL IVPUSH PRN (20:38)
[2018-07-15] MEDS: MELATONIN 1 MG TABLET PO PRN (22:17)
[2018-07-16] MEDS: MORPHINE SULFATE 2 MG/ML VIAL IVPUSH PRN ×3 (05:50→21:35)
[2018-07-16] MEDS: LEVOTHYROXINE NA 50 MCG TABLET (FP) PO SCH (06:42)
[2018-07-16 08:28] LABS: BASO % 0.3 % (0-2.0); EOS % 0.7 % (0-4.5); HEMATOCRIT 30.1 % (32.4-45.2); HEMOGLOBIN 11.2 GM/dL (10.7-15.3); LYMPH % 14.8 % (8-40); MCH 33.8 pg (25.7-33.7); MCHC 37.3 g/dl (32.0-36.0); MEAN CELL VOLUME 90.8 fl (80-96); MEAN PLT VOLUME 6.9 fl (7.5-11.1); MONO % 11.3 % (3.8-10.2); NEUT % 72.9 % (42.8-82.8); PLATELET COUNT 219 K/MM3 (134-434); RBC 3.31 M/mm3 (3.60-5.2); RDW 12.2 % (11.6-15.6); WHITE BLOOD COUNT 6.8 K/mm3 (4.0-10.0)
[2018-07-16 09:23] LABS: ALBUMIN 3.7 g/dl (3.4-5.0); ALK PHOS 80 U/L (45-117); ANION GAP 7 MMOL/L (8-16); BILIRUBIN,TOTAL 0.8 mg/dL (0.2-1); BLOOD UREA NITROGEN 8 mg/dL (7-18); CALCIUM 8.6 mg/dL (8.5-10.1); CHLORIDE 98 mmol/L (98-107); CO2 27 mmol/L (21-32); CREATININE 0.7 mg/dL (0.55-1.3); GLUCOSE,RANDOM 115 mg/dL (74-106); MAGNESIUM 1.9 mg/dL (1.8-2.4); PHOSPHOROUS 2.9 mg/dL (2.5-4.9); POTASSIUM 3.2 mmol/L (3.5-5.1); SGOT/AST 30 U/L (15-37); SGPT/ALT 24 U/L (13-61); SODIUM 131 mmol/L (136-145); TOT PROT 6.9 g/dl (6.4-8.2)
[2018-07-16] MEDS ORDERED: PANTOPRAZOLE SODIUM 40 MG VIAL IVPUSH SCH (10:00)
[2018-07-16] MEDS: CHOLECALCIFEROL (VITAMIN D3) 1,000 UNIT TABLET (FP) PO SCH (11:00)
[2018-07-16] MEDS: ESCITALOPRAM OXALATE 10 MG TABLET (FP) PO SCH (11:00)
--- NOTE | 2018-07-16 11:54 | CON.GI ---
Consult Consult Specialty:: Gastroenterology Referred by:: Dr. Chen Reason for Consultation:: Abdominal pain, abnormal CT imaging - History of Present Illness Chief Complaint: Abdominal pain History of Present Illness: 82yo female h/o CVA, hypothyroidism, anxiety, HTN, presents with abdominal pain , nausea, and vomiting x 3-[address] imaging revealing gastric thickening. Pt is maltese speaking, understands some Kazakh, though maltese phone edge sawyer also used. Pt reports feeling unwell for the past 3-4 days, reports epigastric pain, nausea and vomiting with poor appetite. Describes sharp somewhat burning sensation in epigastrium with fullness, denies dysphagia. States she has not had a bm in 3-4 days, previously regular, daily bm, denies rectal bleeding. Feels she has lost 3-4lbs over the past week. Denies chest pain , sob, fever/chills currently. Pt also had reported headaches initially, denies currently, CT head without acute findings. No prior EGD or colonoscopy. No known family h/o GI malignancy. CT abd/pelvis performed revealing gastric thickening, otherwise no acute findings. - Past Medical History ...: No - Alcohol/Substance Use Hx Alcohol Use: No - Smoking History Smoking history: Never smoked Home Medications - Allergies Allergies/Adverse Reactions: Allergies Allergy/AdvReac Type Severity Reaction Status Date / Time No Known Allergies Allergy Verified 07/15/18 11:02 - Home Medications Home Medications: Ambulatory Orders Levothyroxine Sodium [Levo-T] 50 mcg PO DAILY 05/11/18 Cholecalciferol (Vitamin D3) [Vitamin D3] 2,000 unit PO DAILY 07/15/18 Escitalopram Oxalate [Lexapro -] 10 mg PO DAILY 07/15/18 Melatonin [Melatin] 3 mg PO HS PRN 07/15/18 Quetiapine Fumarate "Xr" [Seroquel Xr -] 400 mg PO HS 07/15/18 LORazepam [Ativan] 1 mg PO BID 07/16/18 Review of Systems - Review of Systems Constitutional: reports: No Symptoms HENT: reports: No Symptoms Cardiovascular: reports: No Symptoms Respiratory: reports: No Symptoms Gastrointestinal: reports: Abdominal Pain Musculoskeletal: reports: No Symptoms Physical Exam-GI Vital Signs: Vital Signs Temperature 98.3 F 07/16/18 06:04 Pulse Rate 82 07/16/18 06:04 Respiratory Rate 20 07/16/18 06:04 Blood Pressure 136/62 07/16/18 06:04 O2 Sat by Pulse Oximetry (%) 98 07/16/18 02:00 Constitutional: Yes: Well Nourished, No Distress, Calm, Other (Pt appears comfortable, sitting in chair) Eyes: Yes: WNL, Conjunctiva Clear HENT: Yes: WNL, Atraumatic Cardiovascular: Yes: WNL, Regular Rate and Rhythm Respiratory: Yes: WNL, Regular, CTA Bilaterally Gastrointestinal Inspection: Yes: WNL, Other (Abd soft, tender diffusely on palpation, mostly epigastrium, nondistended) ...Auscultate: Yes: Normoactive Bowel Sounds Edema: No Labs: CBC, BMP 07/16/18 07:42 Imaging - Results Cat Scan: Report Reviewed, Image Reviewed Problem List - Problems (1) Epigastric pain Assessment/Plan: 82 yo female h/o CVA, hypothyroidism, anxiety, HTN, who presented with abdominal pain (mostly epigastric), nausea and vomiting (without blood) x 3-4 days with weight loss and CT imaging revealing possible gastric thickening. No evidence of bleeding. No NSAID use reported. Possible etiology including gastritis, PUD, vs underlying malignancy. -Continue supportive measures, IVF, diet as tolerated -PPI daily -Closely monitor and replete electrolytes as needed -Will plan for EGD tentatively tomorrow (07/17/18) for further evaluation ( pending normalization in lytes) -Keep NPOpMn Code(s): R10.13 - EPIGASTRIC PAIN
--- NOTE | 2018-07-16 14:01 | PN ---
Physical Exam: SUBJECTIVE: Patient seen and examined this AM. States her vomiting is improving but abdominal pain is worse today. OBJECTIVE: Vital Signs Period Temp Pulse Resp BP Sys/Tuttle Pulse Ox Last 24 Hr 97.3 F-98.3 F 69-84 14-20 136-151/62-77 98-98 GENERAL: A&O, no acute distress HEAD: Normocephalic, atraumatic. EYES: no scleral icterus EARS, NOSE, THROAT: oropharynx clear without exudates. Moist mucous membranes. NECK: supple without lymphadenopathy LUNGS: CTA b/l, no crackles or wheezes HEART: Regular rate and rhythm, normal S1 and S2 without murmur ABDOMEN: Soft, tender to palpation diffusely, worse in epigastric region, normoactive bowel sounds MUSCULOSKELETAL: No bony deformities or tenderness. EXTREMITIES: 2+ pulses, warm, well-perfused. No peripheral edema. Laboratory Results - last 24 hr 07/15/18 07/15/18 07/15/18 12:45 14:10 14:10 WBC RBC Hgb Hct MCV MCH MCHC RDW Plt Count MPV Absolute Neuts (auto) Neutrophils % Lymphocytes % Monocytes % Eosinophils % Basophils % Nucleated RBC % Sodium 127 L Potassium 3.5 Chloride 92 L Carbon Dioxide 24 Anion Gap 11 BUN 18 Creatinine 0.8 Creat Clearance w eGFR > 60 Random Glucose 126 H Serum Osmolality 265 L Calcium 9.1 Phosphorus Magnesium Total Bilirubin 0.4 AST 34 ALT 28 Alkaline Phosphatase 100 Troponin I < 0.02 Total Protein 8.0 Albumin 4.3 Lipase 141 TSH Urine Color Ltyellow Urine Appearance Clear Urine pH 6.0 Ur Specific [place] 1.011 Urine Protein Negative 11 Urine Glucose (UA) Negative Urine Ketones Negative Urine Blood Negative Urine Nitrite Negative Urine Bilirubin Negative Urine Urobilinogen Negative Ur Leukocyte Esterase Trace Urine WBC (Auto) 3 Urine RBC (Auto) 4 Ur Epithelial Cells Rare Urine Osmolality Ur Random Sodium 61 Urine Creatinine 49.0 07/15/18 07/16/18 07/16/18 20:30 07:42 07:42 WBC 6.8 RBC 3.31 L Hgb 11.2 Hct 30.1 L MCV 90.8 MCH 33.8 H MCHC 37.3 H RDW 12.2 Plt Count 219 MPV 6.9 L Absolute Neuts (auto) 5.0 Neutrophils % 72.9 Lymphocytes % 14.8 D Monocytes % 11.3 H D Eosinophils % 0.7 D Basophils % 0.3 Nucleated RBC % 0 Sodium 131 L Potassium 3.2 L Chloride 98 Carbon Dioxide 27 Anion Gap 7 L BUN 8 Creatinine 0.7 Creat Clearance w eGFR > 60 Random Glucose 115 H Serum Osmolality Calcium 8.6 Phosphorus 2.9 Magnesium 1.9 Total Bilirubin 0.8 AST 30 ALT 24 Alkaline Phosphatase 80 Troponin I Total Protein 6.9 Albumin 3.7 Lipase TSH 16.20 H Urine Color Urine Appearance Urine pH Ur Specific [place] Urine Protein Urine Glucose (UA) Urine Ketones Urine Blood Urine Nitrite Urine Bilirubin Urine Urobilinogen Ur Leukocyte Esterase Urine WBC (Auto) Urine RBC (Auto) Ur Epithelial Cells Urine Osmolality 352 Ur Random Sodium Urine Creatinine Active Medications Generic Name Dose Route Start Last Admin Trade Name Freq PRN Reason Stop Dose Admin Acetaminophen 650 mg 07/15/18 16:29 Tylenol - PO Q4H PRN HEADACHE Cholecalciferol 2,000 unit 07/16/18 10:00 07/16/18 11:00 Vitamin D3 - PO 2,000 unit DAILY JOSE GUADALUPE Administration Escitalopram Oxalate 10 mg 07/16/18 10:00 07/16/18 11:00 Lexapro - PO 10 mg DAILY JOSE GUADALUPE Administration Sodium Chloride 1,000 mls @ 75 mls/hr 07/15/18 16:15 07/15/18 19:40 Normal Saline - IV 75 mls/hr ASDIR JOSE GUADALUPE Administration Levothyroxine Sodium 50 mcg 07/16/18 07:00 07/16/18 06:42 Synthroid - PO 50 mcg AM JOSE GUADALUPE Administration Melatonin 3 mg 07/15/18 16:32 07/15/18 22:17 Melatonin PO 3 mg HS PRN Administration INSOMNIA Morphine Sulfate 2 mg 07/15/18 20:22 07/16/18 05:50 Morphine Sulfate IVPUSH 2 mg Q4H PRN Administration PAIN LEVEL 4 - 6 Ondansetron HCl 4 mg 07/15/18 16:32 07/16/18 03:37 Zofran Injection IVPUSH 4 mg Q6H PRN Administration NAUSEA AND/OR VOMITING Pantoprazole Sodium 40 mg 07/16/18 10:00 07/16/18 11:00 Protonix Iv IVPUSH 40 mg DAILY JOSE GUADALUPE Administration Quetiapine Fumarate 400 mg 07/15/18 22:00 07/15/18 22:18 Seroquel Xr - PO 400 mg HS JOSE GUADALUPE Administration ASSESSMENT/PLAN: 82 yo, Czech speaking F, with a PMHx of hypothyroidism, anxiety, HTN, who presented with 3/10, burning, epigastric, abdominal pain for 2 days Abdominal Pain/Nausea/vomiting possibly secondary to viral gastritis vs cipro induced gastroenteritis -vomiting improving, abdominal pain stable vs worsening -D/C cipro pt was taking for UTI previously -Lipase 141 -IV Fluids -CT noted with gastric wall thickening -GI Consult appreciated, for EGD tomorrow -NPO -Symptomatic control with Morphine and Zofran, QTc okay HypoNatremia -possibly due to dehydration -Serum/Urine Osms noted Hypothyroidism -Synthroid 50 mcg PO AM -TSH noted 16.5 -Free T4 normal Anxiety -continue home Seroquel/Lexapro DVT Prophylaxis -hold for EGD with possible intervention FEN -Fluids: NS + 10 mEq K+ @ 75 cc/hr -Electrolytes: HypoKalemia/HypoNatremia, BMP in AM -Nutrition: NPO Disposition Med/Surg Visit type - Emergency Visit Emergency Visit: Yes ED Registration Date: 07/15/18 Care time: The patient presented to the Emergency Department on the above date and was hospitalized for further evaluation of their emergent condition. - New Patient This patient is new to me today: Yes Date on this admission: 07/16/18 - Critical Care Critical Care patient: No
--- NOTE | 2018-07-16 15:00 | PN ---
Teaching Attending Note Name of Resident: Adithya Christianson ATTENDING PHYSICIAN STATEMENT I saw and evaluated the patient. I reviewed the resident's note and discussed the case with the resident. I agree with the resident's findings and plan as documented. SUBJECTIVE: Reports worsening abdominal pain. Mild improvement in nausea and vomiting. No hematemesis/melena/hematochezia. OBJECTIVE: Afebrile, Hemodynamically Stable. Last Vital Signs Temp Pulse Resp BP Pulse Ox 97.8 F 72 20 132/56 L 98 07/16/18 13:50 07/16/18 13:50 07/16/18 06:04 07/16/18 13:50 07/16/18 02:00 HEENT - Atraumatic, Normocephalic Heart - S1, S2, RRR Lungs - clear to auscultation Abdomen - soft, distended, generalized tenderness. No guarding or rebound. Bowel Sounds normal. Extremities - no edema. No calf tenderness Laboratory Results - last 24 hr 07/15/18 07/15/18 07/15/18 12:45 14:10 14:10 WBC RBC Hgb Hct MCV MCH MCHC RDW Plt Count MPV Absolute Neuts (auto) Neutrophils % Lymphocytes % Monocytes % Eosinophils % Basophils % Nucleated RBC % Sodium 127 L Potassium 3.5 Chloride 92 L Carbon Dioxide 24 Anion Gap 11 BUN 18 Creatinine 0.8 Creat Clearance w eGFR > 60 Random Glucose 126 H Serum Osmolality 265 L Calcium 9.1 Phosphorus Magnesium Total Bilirubin 0.4 AST 34 ALT 28 Alkaline Phosphatase 100 Troponin I < 0.02 Total Protein 8.0 Albumin 4.3 Lipase 141 TSH Free T4 Urine Protein 11 Urine WBC (Auto) 3 Urine RBC (Auto) 4 Ur Epithelial Cells Rare Urine Osmolality Ur Random Sodium 61 Urine Creatinine 49.0 07/15/18 07/16/18 07/16/18 20:30 07:42 07:42 WBC 6.8 RBC 3.31 L Hgb 11.2 Hct 30.1 L MCV 90.8 MCH 33.8 H MCHC 37.3 H RDW 12.2 Plt Count 219 MPV 6.9 L Absolute Neuts (auto) 5.0 Neutrophils % 72.9 Lymphocytes % 14.8 D Monocytes % 11.3 H D Eosinophils % 0.7 D Basophils % 0.3 Nucleated RBC % 0 Sodium 131 L Potassium 3.2 L Chloride 98 Carbon Dioxide 27 Anion Gap 7 L BUN 8 Creatinine 0.7 Creat Clearance w eGFR > 60 Random Glucose 115 H Serum Osmolality Calcium 8.6 Phosphorus 2.9 Magnesium 1.9 Total Bilirubin 0.8 AST 30 ALT 24 Alkaline Phosphatase 80 Troponin I Total Protein 6.9 Albumin 3.7 Lipase TSH 16.20 H Free T4 1.09 Urine Protein Urine WBC (Auto) Urine RBC (Auto) Ur Epithelial Cells Urine Osmolality 352 Ur Random Sodium Urine Creatinine Current Medications Generic Name Dose Route Start Last Admin Trade Name Freq PRN Reason Stop Dose Admin Acetaminophen 650 mg 07/15/18 16:29 Tylenol - PO Q4H PRN HEADACHE Cholecalciferol 2,000 unit 07/16/18 10:00 07/16/18 11:00 Vitamin D3 - PO 2,000 unit DAILY JOSE GUADALUPE Administration Escitalopram Oxalate 10 mg 07/16/18 10:00 07/16/18 11:00 Lexapro - PO 10 mg DAILY JOSE GUADALUPE Administration Potassium Chloride 10 meq/ 1,005 mls @ 75 mls/hr 07/16/18 14:45 Sodium Chloride IVPB Q13H JOSE GUADALUPE Levothyroxine Sodium 50 mcg 07/16/18 07:00 07/16/18 06:42 Synthroid - PO 50 mcg AM JOSE GUADALUPE Administration Melatonin 3 mg 07/15/18 16:32 07/15/18 22:17 Melatonin PO 3 mg HS PRN Administration INSOMNIA Morphine Sulfate 2 mg 07/15/18 20:22 07/16/18 05:50 Morphine Sulfate IVPUSH 2 mg Q4H PRN Administration PAIN LEVEL 4 - 6 Ondansetron HCl 4 mg 07/15/18 16:32 07/16/18 03:37 Zofran Injection IVPUSH 4 mg Q6H PRN Administration NAUSEA AND/OR VOMITING Pantoprazole Sodium 40 mg 07/16/18 10:00 07/16/18 11:00 Protonix Iv IVPUSH 40 mg DAILY JOSE GUADALUPE Administration Quetiapine Fumarate 400 mg 07/15/18 22:00 07/15/18 22:18 Seroquel Xr - PO 400 mg HS JOSE GUADALUPE Administration ASSESSMENT/PLAN: 82 year old female with history of Hypothyroidism, Anxiety, HTN, presented with abdominal pain, nausea, and vomiting for 2 days (non-bloody), with subsequent headache, without fever/chills or other neurological symptoms. 1. Abdominal Pain/Nausea/Vomiting sec to adverse effect of Abx Cipro versus Gastritis Lipase 141 CT A/P - possible gastric thickening, no acute pathology Day 7 Cipro 07/15 - discontinued Continue IV Morphine Sulfate, Zofran prn Continue gentle IV hydration IV PPI Eval by GI - for possible EGD in AM. 2. Hyponatremia, likely sec to dehydration, possibly Chronic (Na up to 131 from 127 with Iv hydration). 3. Headache and Lightheadedness likely secondary to dehydration - now resolved. CT Head - no acute findings. Continue IV hydration. Tylenol prn. 4. Hypothyroidism TSH 16.2/free T4 1.09 Continue Levothyroxine - will likely need up-titration of Synthroid. 5. History of Anxiety - continue Lexapro, Seroquel 6. Hypokalemia - will replete DVT Px - Heparin SQ Dispo - PT eval. GI Px - PPI
[2018-07-16] MEDS ORDERED: MAGNESIUM SULF 50% (8.12 MEQ/2 ML-1 GM VIAL) IVPB ONE (15:02)
[2018-07-16] MEDS ORDERED: POTASSIUM CHLORIDE 20 MEQ PREMIX IVPB 100 ML IVPB SCH (15:15)
[2018-07-16] MEDS: KCL 10 MEQ IVPB 10 MEQ/100 ML INFUS.BAG IVPB SCH ×3 (15:37→21:33)
[2018-07-16] MEDS: POTASSIUM CHLORIDE 10 MEQ in SODIUM CHLORIDE 1,000 ML IVPB SCH (18:06)
[2018-07-17] MEDS: KCL 10 MEQ IVPB 10 MEQ/100 ML INFUS.BAG IVPB SCH (03:25)
[2018-07-17] MEDS: LEVOTHYROXINE NA 50 MCG TABLET (FP) PO SCH (06:19)
[2018-07-17] MEDS: POTASSIUM CHLORIDE 10 MEQ in SODIUM CHLORIDE 1,000 ML IVPB SCH (06:19)
[2018-07-17 07:49] LABS: ALBUMIN 3.7 g/dl (3.4-5.0); ALK PHOS 74 U/L (45-117); ANION GAP 8 MMOL/L (8-16); BILIRUBIN,TOTAL 0.6 mg/dL (0.2-1); BLOOD UREA NITROGEN 10 mg/dL (7-18); CALCIUM 8.5 mg/dL (8.5-10.1); CHLORIDE 102 mmol/L (98-107); CO2 27 mmol/L (21-32); CREATININE 0.8 mg/dL (0.55-1.3); GLUCOSE,RANDOM 90 mg/dL (74-106); POTASSIUM 3.9 mmol/L (3.5-5.1); SGOT/AST 28 U/L (15-37); SGPT/ALT 25 U/L (13-61); SODIUM 137 mmol/L (136-145); TOT PROT 6.8 g/dl (6.4-8.2)
[2018-07-17 08:53] LABS: BASO % 0.6 % (0-2.0); EOS % 1.7 % (0-4.5); HEMATOCRIT 31.4 % (32.4-45.2); HEMOGLOBIN 11.5 GM/dL (10.7-15.3); LYMPH % 18.4 % (8-40); MCHC 36.6 g/dl (32.0-36.0); MEAN CELL VOLUME 92.9 fl (80-96); MONO % 10.1 % (3.8-10.2); NEUT % 69.2 % (42.8-82.8); PLATELET COUNT 215 K/MM3 (134-434); RBC 3.38 M/mm3 (3.60-5.2); RDW 11.9 % (11.6-15.6)
--- NOTE | 2018-07-17 10:39 | PN ---
Teaching Attending Note Name of Resident: Adithya Christianson ATTENDING PHYSICIAN STATEMENT I saw and evaluated the patient. I reviewed the resident's note and discussed the case with the resident. I agree with the resident's findings and plan as documented. SUBJECTIVE: Reports some improvement in abdominal discomfort/nausea/vomiting. No hematemesis/melena/hematochezia. OBJECTIVE: Afebrile, Hemodynamically Stable. Last Vital Signs Temp Pulse Resp BP Pulse Ox 97.9 F 86 20 154/69 98 07/17/18 06:00 07/17/18 06:00 07/16/18 23:47 07/17/18 06:00 07/17/18 02:00 HEENT - Atraumatic, Normocephalic Heart - S1, S2, RRR Lungs - clear to auscultation Abdomen - soft, mild generalized tenderness. No guarding or rebound. Bowel Sounds normal. Extremities - no edema. No calf tenderness Laboratory Results - last 24 hr 07/16/18 07/16/18 07/17/18 07:42 07:42 06:30 WBC 6.8 6.0 RBC 3.31 L 3.38 L Hgb 11.2 11.5 Hct 30.1 L 31.4 L MCV 90.8 92.9 MCH 33.8 H 34.0 H MCHC 37.3 H 36.6 H RDW 12.2 11.9 Plt Count 219 215 MPV 6.9 L 7.0 L Absolute Neuts (auto) 5.0 4.2 Neutrophils % 72.9 69.2 Lymphocytes % 14.8 D 18.4 D Monocytes % 11.3 H D 10.1 Eosinophils % 0.7 D 1.7 D Basophils % 0.3 0.6 Nucleated RBC % 0 0 Sodium 131 L Potassium 3.2 L Chloride 98 Carbon Dioxide 27 Anion Gap 7 L BUN 8 Creatinine 0.7 Creat Clearance w eGFR > 60 Random Glucose 115 H Calcium 8.6 Phosphorus 2.9 Magnesium 1.9 Total Bilirubin 0.8 AST 30 ALT 24 Alkaline Phosphatase 80 Total Protein 6.9 Albumin 3.7 TSH 16.20 H Free T4 1.09 07/17/18 06:30 WBC RBC Hgb Hct MCV MCH MCHC RDW Plt Count MPV Absolute Neuts (auto) Neutrophils % Lymphocytes % Monocytes % Eosinophils % Basophils % Nucleated RBC % Sodium 137 Potassium 3.9 Chloride 102 Carbon Dioxide 27 Anion Gap 8 BUN 10 Creatinine 0.8 Creat Clearance w eGFR > 60 Random Glucose 90 Calcium 8.5 Phosphorus Magnesium Total Bilirubin 0.6 AST 28 ALT 25 Alkaline Phosphatase 74 Total Protein 6.8 Albumin 3.7 TSH Free T4 Current Medications Generic Name Dose Route Start Last Admin Trade Name Freq PRN Reason Stop Dose Admin Acetaminophen 650 mg 07/15/18 16:29 Tylenol - PO Q4H PRN HEADACHE Cholecalciferol 2,000 unit 07/16/18 10:00 07/16/18 11:00 Vitamin D3 - PO 2,000 unit DAILY JOSE GUADALUPE Administration Escitalopram Oxalate 10 mg 07/16/18 10:00 07/16/18 11:00 Lexapro - PO 10 mg DAILY JOSE GUADALUPE Administration Sodium Chloride 1,000 mls @ 75 mls/hr 07/17/18 07:45 Normal Saline - IV ASDIR JOSE GUADALUPE Levothyroxine Sodium 50 mcg 07/16/18 07:00 07/17/18 06:19 Synthroid - PO 50 mcg AM JOSE GUADALUPE Administration Melatonin 3 mg 07/15/18 16:32 07/15/18 22:17 Melatonin PO 3 mg HS PRN Administration INSOMNIA Morphine Sulfate 2 mg 07/15/18 20:22 07/16/18 21:35 Morphine Sulfate IVPUSH 2 mg Q4H PRN Administration PAIN LEVEL 4 - 6 Ondansetron HCl 4 mg 07/15/18 16:32 07/16/18 03:37 Zofran Injection IVPUSH 4 mg Q6H PRN Administration NAUSEA AND/OR VOMITING Pantoprazole Sodium 40 mg 07/16/18 10:00 07/16/18 11:00 Protonix Iv IVPUSH 40 mg DAILY JOSE GUADALUPE Administration Quetiapine Fumarate 400 mg 07/15/18 22:00 07/16/18 21:35 Seroquel Xr - PO 400 mg HS JOSE GUADALUPE Administration ASSESSMENT/PLAN: 82 year old female with history of Hypothyroidism, Anxiety, HTN, presented with abdominal pain, nausea, and vomiting for 2 days (non-bloody), with subsequent headache, without fever/chills or other neurological symptoms. 1. Abdominal Pain/Nausea/Vomiting sec to adverse effect of Abx Cipro versus Gastritis Lipase 141 CT A/P - possible gastric thickening, no acute pathology Day 7 Cipro 07/15 - discontinued, with improvement in symptoms since stopping Abx. On IV PPI - to continue on oral PPI on discharge. Scheduled for EGD this AM. Depending on GI findings and patient's ability to tolerate oral intake, she may be fit for discharge later today. 2. Hyponatremia, likely sec to dehydration (Na up to 137 from 127 with IV hydration). 3. Headache and Lightheadedness likely secondary to dehydration - now resolved. CT Head - no acute findings. 4. Hypothyroidism TSH 16.2/free T4 1.09 Continue Levothyroxine - for out-patient PCP follow up for up-titration of Levothyroxine. 5. History of Anxiety - continue Lexapro, Seroquel 6. Hypokalemia - repleted. DVT Px - Heparin SQ Dispo - PT eval. GI Px - PPI
--- NOTE | 2018-07-17 12:00 | PN ---
Progress Note (short form) - Note Progress Note: EGD complete. Report placed in procedual section of physical chart and will be scanned into [employer]. Attempted to call her daughter to discuss finding however the [employer] mailbox was full. If able to contact her, please give her my office number [phone].
[2018-07-17] MEDS: SODIUM CHLORIDE 1,000 ML IV SCH (12:55)
[2018-07-17] MEDS: ESCITALOPRAM OXALATE 10 MG TABLET (FP) PO SCH (12:56)
[2018-07-17] MEDS: CHOLECALCIFEROL (VITAMIN D3) 1,000 UNIT TABLET (FP) PO SCH (12:56)
--- NOTE | 2018-07-17 17:28 | PN ---
Physical Exam: SUBJECTIVE: Patient seen and examined this AM. She states she is feeling much better today. For EGD. OBJECTIVE: Vital Signs Period Temp Pulse Resp BP Sys/Tuttle Pulse Ox Last 24 Hr 97.1 F-98.1 F 68-86 18-99 112-156/63-79 18-100 GENERAL: A&O, no acute distress HEAD: Normocephalic, atraumatic. EYES: no scleral icterus EARS, NOSE, THROAT: oropharynx clear without exudates. Moist mucous membranes. NECK: supple without lymphadenopathy LUNGS: CTA b/l, no crackles or wheezes HEART: Regular rate and rhythm, normal S1 and S2 without murmur ABDOMEN: Soft, tender to palpation diffusely, worse in epigastric region, normoactive bowel sounds MUSCULOSKELETAL: No bony deformities or tenderness. EXTREMITIES: 2+ pulses, warm, well-perfused. No peripheral edema. Laboratory Results - last 24 hr 07/17/18 07/17/18 06:30 06:30 WBC 6.0 RBC 3.38 L Hgb 11.5 Hct 31.4 L MCV 92.9 MCH 34.0 H MCHC 36.6 H RDW 11.9 Plt Count 215 MPV 7.0 L Absolute Neuts (auto) 4.2 Neutrophils % 69.2 Lymphocytes % 18.4 D Monocytes % 10.1 Eosinophils % 1.7 D Basophils % 0.6 Nucleated RBC % 0 Sodium 137 Potassium 3.9 Chloride 102 Carbon Dioxide 27 Anion Gap 8 BUN 10 Creatinine 0.8 Creat Clearance w eGFR > 60 Random Glucose 90 Calcium 8.5 Total Bilirubin 0.6 AST 28 ALT 25 Alkaline Phosphatase 74 Total Protein 6.8 Albumin 3.7 Active Medications Generic Name Dose Route Start Last Admin Trade Name Freq PRN Reason Stop Dose Admin Acetaminophen 650 mg 07/15/18 16:29 Tylenol - PO Q4H PRN HEADACHE Cholecalciferol 2,000 unit 07/16/18 10:00 07/17/18 12:56 Vitamin D3 - PO 2,000 unit DAILY JOSE GUADALUPE Administration Escitalopram Oxalate 10 mg 07/16/18 10:00 07/17/18 12:56 Lexapro - PO 10 mg DAILY JOSE GUADALUPE Administration Sodium Chloride 1,000 mls @ 75 mls/hr 07/17/18 07:45 07/17/18 12:55 Normal Saline - IV 75 mls/hr ASDIR JOSE GUADALUPE Administration Levothyroxine Sodium 50 mcg 07/16/18 07:00 07/17/18 06:19 Synthroid - PO 50 mcg AM JOSEG UADALUPE Administration Melatonin 3 mg 07/15/18 16:32 07/15/18 22:17 Melatonin PO 3 mg HS PRN Administration INSOMNIA Ondansetron HCl 4 mg 07/15/18 16:32 07/16/18 03:37 Zofran Injection IVPUSH 4 mg Q6H PRN Administration NAUSEA AND/OR VOMITING Pantoprazole Sodium 20 mg 07/18/18 10:00 Protonix - PO DAILY JOSE GUADALUPE Quetiapine Fumarate 400 mg 07/15/18 22:00 07/16/18 21:35 Seroquel Xr - PO 400 mg HS JOSE GUADALUPE Administration ASSESSMENT/PLAN: 82 yo, Zimbabwean speaking F, with a PMHx of hypothyroidism, anxiety, HTN, who presented with 3/10, burning, epigastric, abdominal pain for 2 days Abdominal Pain/Nausea/vomiting possibly secondary to viral gastritis vs cipro induced gastroenteritis -vomiting improving, abdominal pain stable vs worsening -D/C cipro pt was taking for UTI previously -Lipase 141 -IV Fluids -CT noted with gastric wall thickening -GI Consult appreciated, EGD today, biopsies pending -Zofran PRN HypoNatremia -possibly due to dehydration -Serum/Urine Osms noted Hypothyroidism -Synthroid 50 mcg PO AM -TSH noted 16.5 -Free T4 normal Anxiety -continue home Seroquel/Lexapro DVT Prophylaxis -Lovenox 40 mg SQ Daily FEN -Fluids: NS @ 75 cc/hr -Electrolytes: HypoKalemia/HypoNatremia, BMP in AM -Nutrition: Full liquids Disposition Med/Surg, likely d/c in AM Visit type - Emergency Visit Emergency Visit: Yes ED Registration Date: 07/15/18 Care time: The patient presented to the Emergency Department on the above date and was hospitalized for further evaluation of their emergent condition. - New Patient This patient is new to me today: No - Critical Care Critical Care patient: No
--- NOTE | 2018-07-17 18:30 | PN ---
Progress Note (short form) - Note Progress Note: Patient's daughter is in [facility]. Patient's grandson was at bedside and I explained the findings and potential diagnoses includig cancer. Await pathology results, pantoprazole 20mg once daily
[2018-07-17] MEDS: MELATONIN 1 MG TABLET PO PRN (21:33)
[2018-07-18] MEDS: SODIUM CHLORIDE 1,000 ML IV SCH (02:34)
[2018-07-18] MEDS: LEVOTHYROXINE NA 50 MCG TABLET (FP) PO SCH (06:15)
[2018-07-18] MEDS: ESCITALOPRAM OXALATE 10 MG TABLET (FP) PO SCH (09:13)
[2018-07-18] MEDS: CHOLECALCIFEROL (VITAMIN D3) 1,000 UNIT TABLET (FP) PO SCH (09:13)
[2018-07-18] MEDS ORDERED: PANTOPRAZOLE 20 MG TABLET (FP) PO SCH (10:00)
[2018-07-18] MEDS ORDERED: ENOXAPARIN NA (PORCINE) 40 MG/0.4 ML DISP.SYRIN SQ SCH (10:00)
[2018-07-18 10:22] VITALS: BP 103/48; PULSE 97; TEMP 98.8
--- NOTE | 2018-07-18 13:16 | DS ---
Physical Exam: SUBJECTIVE: Patient seen and examined this AM. She states that she feels much better and is not having any pain today. She states that she is able to go home with evaluation for home services. OBJECTIVE: Vital Signs Period Temp Pulse Resp BP Sys/Tuttle Pulse Ox Last 24 Hr 98.1 F-98.8 F 70-97 18-20 103-156/48-79 98-100 PHYSICAL EXAM GENERAL: A&O, no acute distress HEAD: Normocephalic, atraumatic. EYES: no scleral icterus EARS, NOSE, THROAT: oropharynx clear without exudates. Moist mucous membranes. NECK: supple without lymphadenopathy LUNGS: CTA b/l, no crackles or wheezes HEART: Regular rate and rhythm, normal S1 and S2 without murmur ABDOMEN: Soft, tenderness to palpation resolved, normoactive bowel sounds MUSCULOSKELETAL: No bony deformities or tenderness. EXTREMITIES: 2+ pulses, warm, well-perfused. No peripheral edema. LABS HOSPITAL COURSE: Date of Admission:07/15/18 Date of Discharge: 07/18/18 HPI On Admission: Patient is a 82 yo, Occitan speaking F, with a PMHx of hypothyroidism, anxiety, HTN, who presented with 3/10, burning, epigastric, abdominal pain for 2 days. She does not remember what she ate during that time. She said she started developing diffuse headaches yesterday after 2 episodes of NBNB vomiting. Patient did not vomit today. She said the headaches come and go. She also states she has been dizzy over the last 2 days. Her last BM was 2 days ago. Patient has no recent travel. She was being treated with Ciprofloxacin for a UTI by her PCP. Today was her last dose. Denies sick contacts, diarrhea, weight loss, LOC, SOB, chills, fevers, bloody stools, urinary symptoms. Hospital Course: She was initially made NPO and her pain was controlled with Morphine initially. She rapidly improved. She was seen by GI who performed an EGD with biopsy due to the fact that there was gastric wall thickening noted on her CT scan. As she had improved and was tolerating PO, she was deemed medically safe to return home with close follow up with GI for biopsy results and further management. She expressed concern going home without help and was requesting a senior care but did not meet criteria to require a senior care so she was sent home with plans for a VNS evaluation for need for home services. Minutes to complete discharge: 35 Discharge Summary Reason For Visit: HYPONATREMIA/VOMITING Current Active Problems Epigastric pain (Acute) Hyponatremia (Acute) Vomiting (Acute) Condition: Stable - Instructions Diet, Activity, Other Instructions: You were admitted with nausea, vomiting, and abdominal pain. It was likely a virus. You had a CT scan of your abdomen which showed some thickening in the wall of your stomach. You were seen by GI who recommended an EGD (camera scope of your upper GI tract), biopsies were taken during the EGD and the pathology results have not returned. You should continue to take all of your home medications as they were prescribed prior to this hospitalization. Of note, you expressed concern about returning home and requested a senior care. You do not meet criteria for senior care at this time however you are being set up for a visiting nursing assessment to assess your home needs. You should follow up with your primary care physician within 1 week You should follow up with GI within one week to receive the results of the biopsy which was sent from your EGD. If you have any severe pain, are not able to tolerate eating, or any other severe or concerning symptoms, you should be evaluated by your primary doctor or return to the emergency department. Referrals: Weston Monae DO [Staff Physician] - Lori Calderon MD [Primary Care Provider] - Disposition: HOME - Home Medications Comprehensive Discharge Medication List: Ambulatory Orders Levothyroxine Sodium [Levo-T] 50 mcg PO DAILY 05/11/18 Cholecalciferol (Vitamin D3) [Vitamin D3] 2,000 unit PO DAILY 07/15/18 Escitalopram Oxalate [Lexapro -] 10 mg PO DAILY 07/15/18 Melatonin [Melatin] 3 mg PO HS PRN 07/15/18 Quetiapine Fumarate "Xr" [Seroquel XR] 400 mg PO HS 07/15/18 LORazepam [Ativan] 1 mg PO BID 07/16/18 Pantoprazole Sodium [Protonix -] 20 mg PO DAILY #30 tablet.ec 07/17/18 This patient is new to me today: No Emergency Visit: Yes ED Registration Date: 07/15/18 Care time: The patient presented to the Emergency Department on the above date and was hospitalized for further evaluation of their emergent condition. Critical Care patient: No - Discharge Referral Referred to [facility] No
--- NOTE | 2018-07-18 14:52 | PN ---
Teaching Attending Note Name of Resident: Adithya Christianson ATTENDING PHYSICIAN STATEMENT I saw and evaluated the patient. I reviewed the resident's note and discussed the case with the resident. I agree with the resident's findings and plan as documented. SUBJECTIVE: Abdominal discomfort/nausea/vomiting resolved. No hematemesis/melena /hematochezia. OBJECTIVE: Afebrile, Hemodynamically Stable. Last Vital Signs Temp Pulse Resp BP Pulse Ox 98.8 F 97 H 20 103/48 L 98 07/18/18 09:00 07/18/18 09:00 07/18/18 09:00 07/18/18 09:00 07/18/18 02:00 HEENT - Atraumatic, Normocephalic Heart - S1, S2, RRR Lungs - clear to auscultation Abdomen - soft, non-tender. No guarding or rebound. Bowel Sounds normal. Extremities - no edema. No calf tenderness ASSESSMENT/PLAN: 82 year old female with history of Hypothyroidism, Anxiety, HTN, presented with abdominal pain, nausea, and vomiting for 2 days (non-bloody), with subsequent headache, without fever/chills or other neurological symptoms. 1. Abdominal Pain/Nausea/Vomiting sec to adverse effect of Abx Cipro versus Gastritis Lipase 141 CT A/P - possible gastric thickening, no acute pathology Day 7 Cipro 07/15 - discontinued, with improvement in symptoms since stopping Abx. On IV PPI - to continue on oral PPI on discharge. s/p EGD - hyperpigmented lesion/mass mid to distal esophagus, biopsied, and flat mass/polyp in stomach also biopsied. Tolerating oral intake with no further GI symptoms. For GI out-patient follow up for biopsy results. 2. Hyponatremia, likely sec to dehydration (Na up to 137 from 127 with IV hydration). 3. Headache and Lightheadedness likely secondary to dehydration - now resolved. CT Head - no acute findings. 4. Hypothyroidism TSH 16.2/free T4 1.09 Continue Levothyroxine - for out-patient PCP follow up for up-titration of Levothyroxine. 5. History of Anxiety - continue Lexapro, Seroquel 6. Hypokalemia - repleted. Symptomatically improved and medically stable for discharge home.
--- NOTE | 2018-07-21 14:08 | PATH ---
Surgical Pathology Report Patient Name: SHITAL PETERSON [facility]. Rec. #: [id number] /Age/Gender: 1935 (Age: 83) / F Account: [id number] Location: [address] [place] [address]/[facility] Taken: 07/17/2018 Received: 07/17/2018 Reported: 07/21/2018 Physicians: Lui Monae D.O. Specimen(s) Received A: BX ANTRUM BODY B: BX GASTRIC MASS-BODY OF STOMACH C: BX ESOPHAGUS 35CM PLAQUE Clinical History Epigastric pain, nausea, vomiting, abnormal CT scan Postoperative diagnosis: Gastric mass, esophageal plaque Final Diagnosis A. 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 IMMUNOHISTOCHEMICAL STAIN FOR H. PYLORI IS POSITIVE (RARE). B. 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 IMMUNOHISTOCHEMICAL STAIN FOR H. PYLORI IS POSITIVE (RARE). SEE COMMENT. C. ESOPHAGEAL PLAQUE, 35 CM, BIOPSY: MINUTE FRAGMENT OF SQUAMOUS MUCOSA WITH RARE PIGMENTED MACROPHAGES CONSISTENT WITH HEMOSIDERIN DEPOSITION. SEE COMMENT. Comment: Part B, Deeper invasion cannot be fully excluded in this material. Part C, Iron special stain performed and interpreted at [facility] was non-contributory. Case seen interdepartmentally. Findings discussed with Dr. Monae. Electronically Signed Angeline Thakkar M.D. Gross Description A. Received in formalin, labeled "biopsy antrum and body" are 5 douglas, irregular portions of soft tissue ranging from 0.1-0.4 cm. in greatest dimension. The specimens are submitted in toto in one cassette. B. Received in formalin, labeled "gastric mass" are 8 douglas, irregular portions of soft tissue ranging from 0.2-0.4 cm. in greatest dimension. The specimens are submitted in toto in one cassette. C. Received in formalin, labeled "biopsy esophageal plaque at 35 cm" is a douglas, irregular portion of soft tissue measuring 0.1 cm. in greatest dimension. The specimen is submitted in toto in one cassette. /07/17/2018 saudi07/17/2018
== END 2018-07-18 14:29 | disposition home health service (06) ==
LOC: JER 10:57 → JERBED 15:22 → J6S 18:39
PROC: 3E0G8GC Introduction of Other Therapeutic Substance into Upper GI, Via Natural or Artificial Opening Endoscopic (ICD-10-PCS; 2018-07-15)
PROC: 3E033NZ Introduction of Analgesics, Hypnotics, Sedatives into Peripheral Vein, Percutaneous Approach (ICD-10-PCS; 2018-07-15)
PROC: 3E033GC Introduction of Other Therapeutic Substance into Peripheral Vein, Percutaneous Approach (ICD-10-PCS; 2018-07-15)
PROC: 3E0337Z Introduction of Electrolytic and Water Balance Substance into Peripheral Vein, Percutaneous Approach (ICD-10-PCS; 2018-07-15)
PROC: 0DB78ZX Excision of Stomach, Pylorus, Via Natural or Artificial Opening Endoscopic, Diagnostic (ICD-10-PCS; 2018-07-17)
PROC: 0DB68ZX Excision of Stomach, Via Natural or Artificial Opening Endoscopic, Diagnostic (ICD-10-PCS; 2018-07-17)
PROC: 0DB28ZX Excision of Middle Esophagus, Via Natural or Artificial Opening Endoscopic, Diagnostic (ICD-10-PCS; 2018-07-17)
PROC: 0DB38ZX Excision of Lower Esophagus, Via Natural or Artificial Opening Endoscopic, Diagnostic (ICD-10-PCS; principal; 2018-07-17 10:00)
DX: E87.1 Hypo-osmolality and hyponatremia (principal); C16.9 Malignant neoplasm of stomach, unspecified; K29.50 Unspecified chronic gastritis without bleeding; D13.1 Benign neoplasm of stomach; B96.81 Helicobacter pylori [H. pylori] as the cause of diseases classified elsewhere; K31.89 Other diseases of stomach and duodenum; R10.13 Epigastric pain; R93.3 Abnormal findings on diagnostic imaging of other parts of digestive tract; R11.2 Nausea with vomiting, unspecified; E87.6 Hypokalemia; E87.8 Other disorders of electrolyte and fluid balance, not elsewhere classified; R51 Headache; R42 Dizziness and giddiness; I10 Essential (primary) hypertension; E03.9 Hypothyroidism, unspecified; F41.9 Anxiety disorder, unspecified
CPT/HCPCS: 36415; 70450-TC; 74177-TC; 80053; 81003; 81015; 82570; 83690; 83735; 83930; 83935; 84100; 84156; 84300; 84439; 84443; 84484; 85025; 88305-TC; 88313-TC; 88342-TC; 93005; 93010; 96361; 96372; 96374; 96375; 96376; 97116-GP; 97161-GP; 99284-25; G0378; J0131; J7030